=== PATIENT | female | born 1965 | race African-American/Black ===

== ENCOUNTER → 2018-01-03 | Outpatient (CLI) | payer MEDICAID ==
[~2018-01-03] MED LIST: OMNIPAQUE 350 MG/ML, 100ML BOTTLE ONE
== END | disposition home or self-care (01) ==
LOC: CFH 10:19
PROVIDERS: ATTEND Student in an Organized Health Care Education/Training Program
DX: D25.9 Leiomyoma of uterus, unspecified (principal); K76.0 Fatty (change of) liver, not elsewhere classified; K59.00 Constipation, unspecified; Z98.890 Other specified postprocedural states
CPT/HCPCS: 74177; Q9967

== ENCOUNTER 2019-05-04 08:03 | Outpatient (CLI) | payer MEDICAID ==
[2019-05-04] MEDS ORDERED: HYDR-3307 PO (09:39)
[2019-05-04] MEDS ORDERED: POTA20TA89 PO (09:39)
[2019-05-04] MEDS ORDERED: elavil PO (09:39)
[2019-05-04] MEDS ORDERED: LINA145C PO (09:39)
[2019-05-04] MEDS ORDERED: OXYB5TAB7 PO (09:39)
[2019-05-04] MEDS ORDERED: POLY17PO5 PO (09:39)
[2019-05-04] MEDS ORDERED: ALBU2.5V NEB (09:39)
[2019-05-04] MEDS ORDERED: ALBU8.5H8 INH (09:39)
[2019-05-04] MEDS ORDERED: BACL-19 PO (09:39)
[2019-05-04] MEDS ORDERED: TOPI50CA5 PO (09:39)
[2019-05-04] MEDS ORDERED: IBUP-1223 PO (09:39)
[2019-05-04] MEDS ORDERED: RANI150T4 PO (09:39)
[2019-05-04] MEDS ORDERED: MEMA10TA20 PO (09:39)
[2019-05-04] MEDS ORDERED: FLUT9.9S NAS (09:39)
[2019-05-04] MEDS ORDERED: TRAZ-137 PO (09:39)
[2019-05-04] MEDS ORDERED: FLUT1DIS3 INH (09:39)
[2019-05-04] MEDS ORDERED: GABA300C10 PO (09:39)
[2019-05-04] MEDS ORDERED: PRAZ5CAP2 PO (09:39)
[2019-05-04] MEDS ORDERED: QUET300T7 PO (09:39)
[2019-05-04] MEDS ORDERED: ALBU1.25 NEB (09:39)
[2019-05-04] MEDS ORDERED: MEDR10TA PO (09:39)
[2019-05-04] MEDS ORDERED: HYDR-3237 PO (09:39)
[2019-05-04] MEDS ORDERED: OLAN10TA3 PO (09:39)
[2019-05-04] MEDS ORDERED: FERR-46 PO (09:39)
[2019-05-04] MEDS ORDERED: TEMA30CA PO (09:39)
[2019-05-04] MEDS ORDERED: MONT10TA6 PO (09:39)
[2019-05-04] MEDS ORDERED: HYDR25CA PO (09:39)
[2019-05-04] MEDS ORDERED: DOCU-131 PO (09:39)
[2019-05-04] MEDS ORDERED: LURA120T PO (09:39)
[2019-05-04] MEDS ORDERED: HYDR-3241 PO (09:49)
[2019-05-04] MEDS ORDERED: ibuprofen PO (09:49)
== END 2019-05-04 23:59 | disposition home or self-care (01) ==
LOC: STAR 08:03
PROVIDERS: ATTEND Student in an Organized Health Care Education/Training Program
DX: Z02.9 Encounter for administrative examinations, unspecified (principal)

== ENCOUNTER 2019-05-10 05:18 | Inpatient (IN) | payer MEDICAID ==
[~2019-05-10] VITALS: Ht 162.6 cm; Wt 88.3 kg
[~2019-05-10 05:18] MED LIST changes: +ALBU1.25 NEB; +ALBU2.5V NEB; +ALBU8.5H8 INH; +BACL-19 PO; +DOCU-131 PO; +FERR-46 PO; +FLUT1DIS3 INH; +FLUT9.9S NAS; +GABA300C10 PO; +HYDR-3237 PO; +HYDR-3241 PO; +HYDR-3307 PO; +HYDR25CA PO; +IBUP-1223 PO; +LINA145C PO; +LURA120T PO; +MEDR10TA PO; +MEMA10TA20 PO; +MONT10TA6 PO; +OLAN10TA3 PO; -OMNIPAQUE 350 MG/ML, 100ML BOTTLE ONE; +OXYB5TAB7 PO; +POLY17PO5 PO; +POTA20TA89 PO; +PRAZ5CAP2 PO; +QUET300T7 PO; +RANI150T4 PO; +TEMA30CA PO; +TOPI50CA5 PO; +TRAZ-137 PO; +elavil PO; +ibuprofen PO
[2019-05-10] MEDS ORDERED: LACTATED RINGERS 1,000 ML IV SCH (06:07)
[2019-05-10] MEDS ORDERED: BUPIVACAINE/PF 0.25% ONE (06:25)
[2019-05-10] MEDS ORDERED: EPINEPHRINE 1 MG/ML, 1ML ONE (06:25)
[2019-05-10] MEDS ORDERED: LIDOCAINE-MPF 1%, 2ML INFIL ONE (06:30)
[2019-05-10] MEDS ORDERED: MIDAZOLAM 1 MG/ML, 2ML ONE (06:54)
[2019-05-10] MEDS ORDERED: FENTANYL PF 250 MCG/5ML ONE ×2 (06:55→08:05)
[2019-05-10] MEDS ORDERED: GABAPENTIN 300 MG CAPSULE PO ONE (07:00)
[2019-05-10] MEDS ORDERED: SCOPOLAMINE PATCH, 1.5MG PATCH.TD72 TD ONE (07:00)
[2019-05-10] MEDS ORDERED: ACETAMINOPHEN 500 MG TABLET PO ONE (07:00)
[2019-05-10] MEDS ORDERED: PHENYLEPHRINE 10 MG/ML ONE (07:01)
[2019-05-10] MEDS ORDERED: FLUORESCEIN SODIUM 500 MG/5 ML ONE (07:19)
[2019-05-10] MEDS ORDERED: ONDANSETRON 2MG/ML, 2ML IV PRN ×2 (07:30→14:00)
[2019-05-10] MEDS ORDERED: MEPERIDINE/PF 25MG/0.5ML IVPush PRN (07:30)
[2019-05-10] MEDS ORDERED: OXYcodone 5 MG/5 ML ORAL.SOL UDC PO PRN (07:30)
[2019-05-10] MEDS ORDERED: PROMETHAZINE 25 MG/ML, 1ML IV PRN (07:30)
[2019-05-10] MEDS ORDERED: ALBUTEROL SULFATE 2.5 MG/3 ML NPPB PRN ×2 (07:30→14:30)
[2019-05-10] MEDS ORDERED: MORPHINE SULFATE 4 MG/ML, 1ML IVPush PRN (07:30)
[2019-05-10] MEDS ORDERED: PROMETHAZINE 25 MG SUPP PR PRN (07:30)
[2019-05-10] MEDS ORDERED: LABETALOL 5MG/ML, 20ML IV PRN (07:30)
[2019-05-10] MEDS ORDERED: ONDANSETRON ODT 8 MG PO PRN (07:30)
[2019-05-10] MEDS ORDERED: PROMETHAZINE 25 MG/ML, 1ML IM PRN ×2 (07:30)
[2019-05-10] MEDS ORDERED: PROMETHAZINE 12.5 MG SUPP PR PRN (07:30)
[2019-05-10] MEDS ORDERED: ALBUTEROL/IPRATROPIUM 2.5MG/0.5MG, 3 ML NPPB PRN (07:30)
[2019-05-10] MEDS ORDERED: hydrALAzine 20 MG/ML, 1ML IV PRN (07:30)
[2019-05-10] MEDS ORDERED: FENTANYL PF 100 MCG/2ML IV PRN (07:30)
[2019-05-10] MEDS ORDERED: PROPOFOL 10 MG/ML, 20ML ONE (08:00)
[2019-05-10] MEDS ORDERED: CEFAZOLIN 1,000 MG ONE (08:00)
[2019-05-10] MEDS ORDERED: GLYCOPYRROLATE 0.2MG/1ML, 5ML ONE (08:00)
[2019-05-10] MEDS ORDERED: NEOSTIGMINE 1 MG/ML, 10ML ONE (08:00)
[2019-05-10] MEDS ORDERED: ONDANSETRON 2MG/ML, 2ML ONE (08:00)
[2019-05-10] MEDS ORDERED: DEXAMETHASONE 4 MG/ML, 1ML ONE (08:00)
[2019-05-10] MEDS ORDERED: ROCURONIUM 10MG/ML,5ML ONE (08:00)
[2019-05-10] MEDS ORDERED: KETOROLAC 30 MG/1 ML ONE (08:01)
[2019-05-10] MEDS ORDERED: FENTANYL PF 100 MCG/2ML ONE (10:26)
[2019-05-10 11:02] LABS: BASOPHILS # (AUTO) 0.03 x10^3/uL (0-0.1); BASOPHILS % (AUTO) 0 % (0-1); EOSINOPHILS # (AUTO) 0.02 x10^3/uL (0-0.4); EOSINOPHILS % (AUTO) 0 % (1-7); LYMPHOCYTES # (AUTO) 1.53 x10^3/uL (1-3.4); LYMPHOCYTES % (AUTO) 14 % (22-44); MD NO; MEAN CORPUSCULAR HEMOGLOBIN 30.5 pg (27.0-34.8); MEAN CORPUSCULAR HGB CONC 32.8 g/dL (32.4-35.8); MEAN CORPUSCULAR VOLUME 93.1 fL (80-100); MEAN PLATELET VOLUME 8.7 fL (7.4-10.4); MONOCYTES # (AUTO) 0.12 x10^3/uL (0.2-0.8); MONOCYTES % (AUTO) 1 % (2-9); NEUTROPHILS % (AUTO) 85 % (42-75); PLATELET COUNT 219 x10^3/uL (130-400); RED BLOOD COUNT 3.48 x10^6/uL (3.82-5.3); RED CELL DISTRIBUTION WIDTH 13.4 % (9.6-15.2)
[2019-05-10 11:21] LABS: D-DIMER (DIC) 0.53 ug/mlFEU (0.00-0.52); PROTIME 10.9 Seconds (9.6-11.5)
[2019-05-10] MEDS ORDERED: HYDROmorphone 2 MG/ML, 1ML ONE (11:39)
[2019-05-10] MEDS: HYDROmorphone 2 MG/ML, 1ML IVPush PRN ×4 (11:41→12:10)
[2019-05-10 12:43] VITALS: BP 108/68
[2019-05-10] MEDS ORDERED: morphine SULFATE 10 MG/ML, 1ML IV PRN (14:00)
[2019-05-10] MEDS ORDERED: HYDROXYZINE PAMOATE 25MG CAP PO PRN (14:30)
[2019-05-10] MEDS ORDERED: TRAZODONE 100MG TABLET PO PRN (14:30)
[2019-05-10] MEDS: BACLOFEN 10 MG TABLET PO SCH ×2 (16:00→21:59)
[2019-05-10] MEDS: IBUPROFEN 600 MG TABLET PO SCH ×2 (16:00→20:19)
[2019-05-10] MEDS: GABAPENTIN 300 MG CAPSULE PO SCH ×2 (16:00→20:19)
[2019-05-10 20:04] VITALS: BP 106/70
[2019-05-10] MEDS: FERROUS SULFATE 325 MG TABLET PO SCH (20:19)
[2019-05-10] MEDS ORDERED: QUETIAPINE 100MG TABLET PO SCH (21:00)
[2019-05-10] MEDS ORDERED: PRAZOSIN 5 MG CAPSULE PO SCH (21:00)
[2019-05-10] MEDS ORDERED: PRAZOSIN 1 MG CAPSULE PO SCH (21:00)
[2019-05-10] MEDS ORDERED: TEMAZEPAM 30 MG CAPSULE PO SCH (21:00)
[2019-05-10] MEDS ORDERED: LURASIDONE 20 MG TABLET PO SCH (21:00)
[2019-05-10] MEDS ORDERED: OLANZAPINE 10 MG TABLET PO SCH (21:00)
[2019-05-10] MEDS: BUDESONIDE 0.5 MG/2 ML INHA NPPB SCH (21:00)
[2019-05-11 00:11] VITALS: BP 92/53
[2019-05-11 04:06] VITALS: BP 102/66
[2019-05-11] MEDS: IBUPROFEN 600 MG TABLET PO SCH ×2 (05:31→12:24)
[2019-05-11 06:50] VITALS: BP 96/60
[2019-05-11] MEDS ORDERED: IBUP-1223 PO (08:30)
[2019-05-11] MEDS ORDERED: TOPIRAMATE 25 MG TABLET PO SCH (09:00)
[2019-05-11] MEDS ORDERED: MEMANTINE 10MG TABLET PO SCH (09:00)
[2019-05-11] MEDS ORDERED: DOCUSATE 100 MG CAPSULE PO SCH (09:00)
[2019-05-11] MEDS ORDERED: LINACLOTIDE 145 MCG HOMEMEDPO SCH (09:00)
[2019-05-11] MEDS ORDERED: POLYETHYLENE GLYCOL 17 GM PACKET PO SCH (09:00)
[2019-05-11] MEDS ORDERED: MONTELUKAST 10 MG TABLET PO SCH (09:00)
[2019-05-11] MEDS ORDERED: OXYBUTYNIN CHLORIDE 5 MG TABLET PO SCH (09:00)
[2019-05-11] MEDS ORDERED: FAMOTIDINE 20 MG TABLET PO SCH (09:00)
[2019-05-11] MEDS ORDERED: MEDROXYPROGESTERONE ACETATE 5 MG TABLET PO SCH (09:00)
[2019-05-11] MEDS: BUDESONIDE 0.5 MG/2 ML INHA NPPB SCH (09:00)
[2019-05-11] MEDS ORDERED: FLUTICASONE NASAL SPRAY 16GM NAS SCH (09:00)
[2019-05-11] MEDS ORDERED: AMITRIPTYLINE 25 MG TABLET PO SCH (09:00)
[2019-05-11] MEDS ORDERED: POTASSIUM CHLORIDE 20 MEQ TAB.ER.PRT PO SCH (09:00)
[2019-05-11] MEDS: FERROUS SULFATE 325 MG TABLET PO SCH (10:01)
[2019-05-11] MEDS: BACLOFEN 10 MG TABLET PO SCH (10:01)
[2019-05-11] MEDS: GABAPENTIN 300 MG CAPSULE PO SCH (10:01)
== END 2019-05-11 13:26 | disposition home or self-care (01) | DRG 743 ==
LOC: OR 05:18 → 4NOR 12:27 → OR 12:29 → 4NOR 12:29 → DCLOUNGE 05-11 13:08
PROVIDERS: ADMIT Student in an Organized Health Care Education/Training Program; ATTEND Student in an Organized Health Care Education/Training Program
PROC: 0UT7FZZ Resection of Bilateral Fallopian Tubes, Via Natural or Artificial Opening With Percutaneous Endoscopic Assistance (ICD-10-PCS; 2019-05-10)
PROC: 0TJB8ZZ Inspection of Bladder, Via Natural or Artificial Opening Endoscopic (ICD-10-PCS; 2019-05-10)
PROC: 0UT9FZZ Resection of Uterus, Via Natural or Artificial Opening With Percutaneous Endoscopic Assistance (ICD-10-PCS; principal; 2019-05-10 07:30)
DX: D25.9 Leiomyoma of uterus, unspecified (principal); K76.89 Other specified diseases of liver; J45.909 Unspecified asthma, uncomplicated; F43.10 Post-traumatic stress disorder, unspecified; F32.9 Major depressive disorder, single episode, unspecified; E66.9 Obesity, unspecified; Z83.3 Family history of diabetes mellitus; Z82.49 Family history of ischemic heart disease and other diseases of the circulatory system; Z68.33 Body mass index [BMI] 33.0-33.9, adult
CPT/HCPCS: 36415; J7626; 85014; 85018; 85025; 85049; 85379; 85384; 85610; 85730; 86850; 86900; 88307; G0378; J0171; J0690; J1100; J1170; J1885; J2250; J2405; J2704; J2710; J3010; J3490; J2370; J7120